=== PATIENT | male | born 1955 | race Hispanic/Latino ===

== ENCOUNTER 2018-10-31 08:45 | Outpatient (CLI) | payer OTHER, MEDICARE ==
--- NOTE | 2018-10-31 09:19 | RAD ---
LEFT HIP TWO VIEWS: History: Hip pain without trauma. Comparison: None. FINDINGS: There is severe osteoarthrosis of the left hip. No acute fracture or subluxation is evident. IMPRESSION: Severe left hip osteoarthrosis. POS: [facility]
[2018-10-31 10:04] LABS: #Basophils 0.1 thou/uL (0.0-0.2); #Eosinphils 0.2 thou/uL (0.0-0.7); #Lymphocytes 2.5 thou/uL (1.20-3.40); #Monocytes 0.7 thou/uL (0.11-0.59); #Neutrophils 3.4 thou/uL (1.40-6.50); %Basophils 1.7 % (0.0-1.0); %Eosinophils 2.5 % (0.0-10.0); %Lymphocytes 36.1 % (21.0-51.0); %Monocytes 9.7 % (0.0-10.0); Mean Corpuscular HGB CONC 31.7 g/dL (32.0-36.0); Mean Corpuscular Hemoglobin 30.3 pg (27.0-31.0); Mean Corpuscular Volume 95.7 fL (78.0-98.0); Mean Platelet Volume 10.2 fL (7.4-10.4); Platelet Count 171 thou/uL (130-400); Red Blood Cell (RBC) Count 4.94 mill/uL (4.70-6.10); White Blood Cell (WBC) Count 6.8 thou/uL (4.8-10.8)
[2018-10-31 10:18] LABS: ALT (SGPT) 80 U/L (8-55); AST (SGOT) 73 U/L (5-34); Alkaline Phosphatase 60 U/L (40-150); Anion Gap 14 mmol/L (10-20); BUN (Urea Nitrogen) 21 mg/dL (8.4-25.7); Bilirubin, Total 0.5 mg/dL (0.2-1.2); Calc. Creatinine Clearance 0 mL/min (70-130); Calcium 8.6 mg/dL (7.8-10.44); Carbon Dioxide 29 mmol/L (23-31); Chloride 100 mmol/L (98-107); Cholesterol 171 mg/dl (< 200 Desired); Estimated GFR-MDRD 87; Globulin 4.1 g/dL (2.4-3.5); Glucose 84 mg/dL (80-115); HDL Cholesterol 34 mg/dL (>60 Neg Risk); LDL Cholesterol, Calculated 108 mg/dL; Potassium 3.9 mmol/L (3.5-5.1); Protein, Total 8.1 g/dL (5.8-8.1); Sodium 139 mmol/L (136-145); Triglycerides 143 mg/dL (Less than 150)
[2018-10-31 16:58] LABS: Hemoglobin A1c 5.7 % (4.0-6.0)
[2018-10-31 17:03] LABS: Valproic Acid (Depakene) 75.3 ug/mL (50.0-100.0)
[2018-10-31 17:24] LABS: Creatinine, Urine 224.54 mg/dL (63-166); Microalbumin Urine 1.9 mg/dL (0.5-50.0); Microalbumin/Creat Ratio 8.5 mg/g (Less than 30)
[2018-10-31 17:27] LABS: Free T4 (Free Thyroxine) 1.35 ng/dL (0.70-1.48)
== END 2018-10-31 08:46 | disposition home or self-care (01) ==
LOC: MADLABBHPM 08:45 → EDSTATUS 08:47
PROVIDERS: ATTEND Family Medicine
DX: E66.01 Morbid (severe) obesity due to excess calories (principal)
CPT/HCPCS: 36415; 80053; 80061; 80164; 82043; 83036; 84439; 84443; 85025

== ENCOUNTER 2019-08-12 22:45 | Emergency (ER) | payer OTHER, MEDICARE ==
[2019-08-12] MEDS ORDERED: Haloperidol 5 MG TAB ONE (23:08)
[2019-08-12] MEDS ORDERED: Diazepam 5 MG TAB ONE (23:08)
== END 2019-08-12 23:16 | disposition home or self-care (01) ==
LOC: MADERS 22:45
DX: F41.9 Anxiety disorder, unspecified (principal); I10 Essential (primary) hypertension; F31.9 Bipolar disorder, unspecified; F22 Delusional disorders; Z76.0 Encounter for issue of repeat prescription; Z79.899 Other long term (current) drug therapy
CPT/HCPCS: 99283